=== PATIENT | male | born 2000 | race Caucasian/White ===

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

== ENCOUNTER 2022-08-03 18:07 | Emergency (ER) | payer BC ==
[2022-08-03] MEDS ORDERED: Fluorescein 1 MG Ophth Strip ONE (19:22)
[2022-08-03] MEDS ORDERED: Proparacaine 0.5% Ophth Soln 15 ML Bottle ONE (19:44)
[2022-08-03] MEDS ORDERED: Fluorescein 1 MG Ophth Strip EYEBOTH ONE (19:47)
[2022-08-03] MEDS ORDERED: Proparacaine 0.5% Ophth Soln 15 ML Bottle EYEBOTH SCH (20:00)
== END 2022-08-03 20:10 | disposition home or self-care (01) ==
LOC: JD.ED 18:07
DX: S05.01XA Injury of conjunctiva and corneal abrasion without foreign body, right eye, initial encounter (principal)
CPT/HCPCS: 99282; 99283; J3490